=== PATIENT | female | born 1985 | race African-American/Black ===

== ENCOUNTER 2017-02-24 10:08 | Emergency (ER) | payer SELFPAY ==
[~2017-02-24] VITALS: Ht 177.8 cm; Wt 152.0 kg
[2017-02-24 10:28] VITALS: BP 139/57
--- NOTE | 2017-02-24 12:06 | NUR ---
Pt taken to bed 6.
--- NOTE | 2017-02-24 12:14 | NUR ---
31/F presents to the ED for evaluation of toothache. Pt describes pain to right lower jaw, mild pain, 02/16. Pt states "It's not that bad right now." Pt states "I think I might have an abscess." Pt denies any fever or chills. Pt states "I was down in [place] this weekend and I think some dirt might have got in there. I really do." Patient has swelling to right cheek. Patient is AOX4. VSS. Pt provided with an ice pack to apply to cheek. Warm blanket provided. Pt placed in position of comfort. All needs met. Pt awaiting ERMD.
--- NOTE | 2017-02-24 12:16 | NUR ---
PA student at bedside.
--- NOTE | 2017-02-24 12:30 | NUR ---
Patient being evaluated by Dr. Chahal at bedside.
[2017-02-24 13:19] VITALS: BP 132/87
--- NOTE | 2017-02-24 13:20 | NUR ---
Patient discharged with v/s stable. Written and verbal after care instructions given and explained. Patient alert, oriented and verbalized understanding of instructions. Ambulatory with steady gait. All questions addressed prior to discharge. ID band removed. Patient advised to follow up with PMD. Rx of AMOXICILLIN AND MOTRIN given. Patient educated on indication of medication including possible reaction and side effects. Opportunity to ask questions provided and answered.
== END 2017-02-24 12:20 | disposition home or self-care (01) ==
LOC: MED 10:08
DX: K04.7 Periapical abscess without sinus (principal); R03.0 Elevated blood-pressure reading, without diagnosis of hypertension
CPT/HCPCS: 99283

== ENCOUNTER 2024-03-20 09:22 | Emergency (ER) | payer MEDICAID ==
[~2024-03-20] VITALS: Ht 175.3 cm; Wt 130.2 kg
[2024-03-20 09:34] VITALS: BP 130/79; PULSE 89; RESP 16; TEMP 97.3; O2SAT 99
[2024-03-20] MEDS ORDERED: KETOROLAC 60 MG/2 ML VIAL IM ONE (09:35)
[2024-03-20 09:46] VITALS: BP 130/79; PULSE 89; RESP 16; TEMP 97.3
[2024-03-20 09:50] VITALS: O2SAT 99
[2024-03-20] MEDS: ACETAMINOPHEN EXTRA STRENGTH 500 MG TAB PO ONE (09:57)
[2024-03-20] MEDS ORDERED: PENI-319 PO (09:59)
== END 2024-03-20 10:02 | disposition home or self-care (01) ==
LOC: MED 09:22
DX: O26.892 Other specified pregnancy related conditions, second trimester (principal); K04.7 Periapical abscess without sinus; Z3A.16 16 weeks gestation of pregnancy; Z98.890 Other specified postprocedural states
CPT/HCPCS: 99283